=== PATIENT | female | born 1980 | race American Indian/Alaskan Native ===

== ENCOUNTER 2017-08-13 18:46 | Emergency (ER) | payer MEDICAID ==
[2017-08-13 21:45] LABS: Basophils % (Auto) 0.7 % (0.0-1.8); Eosinophils % (Auto) 4.1 % (0.0-4.3); Hematocrit 34.9 % (30.3-42.9); Hemoglobin 10.8 gm/dl (10.1-14.3); Mean Corpuscular HGB Conc 31 % (30-34); Mean Corpuscular Volume 80 fl (79-97); Platelet Count 269 K/mm3 (140-440); Red Blood Count 4.36 M/mm3 (3.65-5.03); Red Cell Distribution Width 18.3 % (13.2-15.2); White Blood Count 4.7 K/mm3 (4.5-11.0)
[2017-08-13 21:47] LABS: Mean Corpuscular Hemoglobin 25 pg (28-32)
[2017-08-13 21:59] LABS: Alanine Aminotransferase 14 units/L (7-56); Albumin 3.8 g/dL (3.9-5); Albumin/Globulin Ratio 1.2 %; Alkaline Phosphatase 69 units/L (35-129); Anion Gap 17 mmol/L; Blood Urea Nitrogen 10 mg/dL (7-17); Calcium 8.7 mg/dL (8.4-10.2); Carbon Dioxide 22 mmol/L (22-30); Glucose 97 mg/dL (65-100); Lipase 18 units/L (13-60); Potassium 3.4 mmol/L (3.6-5.0); Sodium 144 mmol/L (137-145); Total Protein 7.1 g/dL (6.3-8.2)
[2017-08-13 22:36] LABS: Bacteria,Urine 1+ /HPF (Negative); Bilirubin,Urine NEG (Negative); Blood,Urine LG (Negative); Ketones,Urine NEG (Negative); Leukocyte Esterase,Urine NEG (Negative); Mucus,Urine 1+ /HPF; Nitrite,Urine NEG (Negative); WBC,Urine < 1.0 /HPF (0.0-6.0)
[2017-08-14] MEDS ORDERED: LIDOCAINE VISCOUS 2% PO ONE (07:06)
[2017-08-14] MEDS ORDERED: ALUM-MAG HYDROX-SIMETH 200-200-20MG/5ML PO ONE (07:06)
--- NOTE | 2017-08-14 07:13 | Emergency Department Report ---
HPI - General Chief Complaint: Abdominal Pain Time Seen by Provider: 08/14/17 06:44 - HPI HPI: This is a 37-year-old -[place] female presents to the emergency department from home with complaint of a 3 week history of intermittent upper abdominal and/or epigastric burning sensation/discomfort. This is intermittent and appears to worsen with food and sometimes it will cause nausea and/or vomiting. She has not taken anything for her symptoms prior to presentation. Her primary care physician is Dr. Kendall Crowley but she has not seen him regarding her symptoms. She has a past medical history of asthma and hypertension and a psychiatric history of schizophrenia. No recent travel or sick contacts at home. She denies any past surgical history. ED Past Medical Hx - Past Medical History Previous Medical History?: Yes Hx Psychiatric Treatment: Yes (schiophrenia) Hx Asthma: Yes - Surgical History Past Surgical History?: No - Social History Smoking Status: Current Every Day Smoker Substance Use Type: Alcohol - Medications Home Medications: Home Medications Medication Instructions Recorded Confirmed Last Taken Type Cephalexin [Keflex] 500 mg PO Q8HR #21 cap 03/12/16 Unknown Rx traMADol [Ultram] 50 mg PO Q6HR PRN #12 tablet 03/12/16 Unknown Rx Omeprazole Magnesium [PriLOSEC Otc] 20 mg PO QDAY #20 tablet. 08/14/17 Unknown Rx ED Review of Systems ROS: Stated complaint: abdomen pain Other details as noted in HPI Comment: All other systems reviewed and negative Constitutional: denies: chills, fever Eyes: denies: eye pain, eye discharge, vision change ENT: denies: ear pain, throat pain Respiratory: denies: cough, shortness of breath, wheezing Cardiovascular: denies: chest pain, palpitations Gastrointestinal: abdominal pain, nausea, vomiting Genitourinary: denies: urgency, dysuria, discharge Musculoskeletal: denies: back pain, joint swelling, arthralgia Skin: denies: rash, lesions Neurological: denies: headache, weakness, paresthesias Physical Exam - Physical Exam Vital Signs: Vital Signs 08/13/17 08/14/17 08/14/17 20:54 04:14 06:22 Temperature 98.4 F 97.8 F Pulse Rate 94 H 78 68 Respiratory 18 18 17 Rate Blood Pressure 141/101 120/97 Blood Pressure 124/78 [Left] O2 Sat by Pulse 95 100 100 Oximetry Physical Exam: GENERAL: The patient is well-developed well-nourished. HENT: Normocephalic. Atraumatic. Patient has moist mucous membranes. EYES: Extraocular motions are intact. Pupils equal reactive to light bilaterally. NECK: Supple. Trachea is midline. CHEST/LUNGS: Clear to auscultation. There is no respiratory distress noted. HEART/CARDIOVASCULAR: Regular. There is no tachycardia. There is no gallop rub or murmur. ABDOMEN: Abdomen is soft. Mild upper quadrant abdominal tenderness to palpation. No guarding or rebound tenderness. Obese habitus. Patient has normal bowel sounds. There is no abdominal distention. SKIN: Skin is warm and dry. NEURO: The patient is awake, alert, and oriented. The patient is cooperative. The patient has no focal neurologic deficits. The patient has normal speech. MUSCULOSKELETAL: There is no tenderness or deformity. There is no limitation range of motion. There is no evidence of acute injury. ED Course Vital Signs 08/13/17 08/14/17 08/14/17 20:54 04:14 06:22 Temperature 98.4 F 97.8 F Pulse Rate 94 H 78 68 Respiratory 18 18 17 Rate Blood Pressure 141/101 120/97 Blood Pressure 124/78 [Left] O2 Sat by Pulse 95 100 100 Oximetry ED Medical Decision Making - Lab Data Result diagrams: 08/13/17 21:21 08/13/17 21:21 - Radiology Data Radiology results: report reviewed RIGHT UPPER QUADRANT ULTRASOUND: HISTORY: Upper abdominal pain. Technique: Transabdominal ultrasound imaging with Doppler interrogation. FINDINGS: There is trace sludge in the gallbladder. No shadowing gallstones. The gallbladder is normal size, contour and wall thickness. The CBD measures 4.4 mm. Images of the liver parenchyma, pancreas, right kidney and aorta are within normal limits. No perihepatic ascites. IMPRESSION: Trace sludge in the gallbladder. Transcribed By: TTR Dictated By: SRIDEVI RAPHAEL JR, MD Electronically Authenticated By: SRIDEVI RAPHAEL JR, MD Signed Date/Time: 08/14/17 0750 - Medical Decision Making 37-year-old female with 3 week history of upper abdominal pain, nausea and vomiting. There appears to be a component of acid reflux. Labs are unremarkable. There is some blood in the urine but she is in the middle of her menstrual cycle. Vital signs stable including being afebrile. Ultrasound shows gallbladder sludge. 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 She will return to the ER with any worsening of her symptoms or any acute distress. - Differential Diagnosis GERD cholecystitis, cholelithiasis, pancreatitis, gastritis Critical Care Time: No Critical care attestation.: If time is entered above; I have spent that time in minutes in the direct care of this critically ill patient, excluding procedure time. ED Disposition Clinical Impression: Gallbladder sludge Abdominal pain Qualifiers: Abdominal location: upper abdomen, unspecified Qualified Code(s): R10.10 - Upper abdominal pain, unspecified GERD (gastroesophageal reflux disease) Qualifiers: Esophagitis presence: esophagitis presence not specified Qualified Code(s): K21.9 - Gastro-esophageal reflux disease without esophagitis Disposition: TO HOME OR SELFCARE Is pt being admited?: No Condition: Stable Instructions: Biliary Colic (ED), Gastroesophageal Reflux Disease (ED), Abdominal Pain (ED) Additional Instructions: Please follow-up with your primary care physician. I have given you a referral for a local online merchandising manager, Dr. Alvarado, to follow up regarding the gallbladder sludge and acid reflux and your abdominal pain. Return to the emergency Department with any worsening of your symptoms or any acute distress. Please try and stay away from any alcohol, greasy/fatty or spicy food. Prescriptions: Omeprazole Magnesium [PriLOSEC Otc] 20 mg PO QDAY #20 tablet. Referrals: CHITO LAUREN MD [Primary Care Provider] - 3-5 Days OMEGA ALVARADO MD [Staff Physician] - 3-5 Days Time of Disposition: 08:12
--- NOTE | 2017-08-14 07:52 | Ultrasound Report ---
RIGHT UPPER QUADRANT ULTRASOUND: HISTORY: Upper abdominal pain. Technique: Transabdominal ultrasound imaging with Doppler interrogation. FINDINGS: There is trace sludge in the gallbladder. No shadowing gallstones. The gallbladder is normal size, contour and wall thickness. The CBD measures 4.4 mm. Images of the liver parenchyma, pancreas, right kidney and aorta are within normal limits. No perihepatic ascites. IMPRESSION: Trace sludge in the gallbladder.
[2017-08-14 08:40] VITALS: BP 115/87
== END 2017-08-14 08:40 | disposition home or self-care (01) ==
LOC: ED 18:46
DX: K21.9 Gastro-esophageal reflux disease without esophagitis (principal); R10.10 Upper abdominal pain, unspecified; K83.8 Other specified diseases of biliary tract; J45.909 Unspecified asthma, uncomplicated; F20.9 Schizophrenia, unspecified; F17.200 Nicotine dependence, unspecified, uncomplicated; Z91.030 Bee allergy status
CPT/HCPCS: 36415; 76705; 80053; 81001; 81025; 83690; 85025

== ENCOUNTER 2019-07-27 11:49 | Emergency (ER) | payer MEDICAID ==
--- NOTE | 2019-07-27 12:03 | Event Note ---
ED Screening Note Date of service: 07/27/19 Time: 11:59 ED Screening Note: 38 y o f present cc of bilat knee pain x 2 days states she fell about a month ago and has had worsening pain since then states also shooting pain This initial assessment/diagnostic orders/clinical plan/treatment(s) is/are subject to change based on patients health status, clinical progression and re- assessment by fellow clinical providers in the ED. Further treatment and workup at subsequent clinical providers discretion. Patient/guardian urged not to elope from the ED as their condition may be serious if not clinically assessed and managed. Initial orders include: ACC eval
--- NOTE | 2019-07-27 12:27 | Emergency Department Report ---
ED General Adult HPI - General Chief complaint: Extremity Problem,Nontraumatic Stated complaint: RT LEG PAIN Time Seen by Provider: 07/27/19 11:57 Source: patient Mode of arrival: Ambulatory Limitations: No Limitations - History of Present Illness Initial comments: Patient is a 38-year-old female who presents the emergency room with complaints of right knee pain that began a month ago. She states that she had a fall approximately a month ago and has had pain since then. She does have some discomfort with ambulation but is still ambulatory. she denies any numbness or weakness. Patient also presents to the ED with complaints of pain in her left breast that has been there for a while per patient. She denies any nipple discharge, skin changes of the breast, retraction of the nipple. pt has a past medical history of asthma and high blood pressure. she states she took her blood pressure medication this morning. - Related Data Home Medications Medication Instructions Recorded Confirmed Last Taken ALBUTEROL Inhaler (OR & NICU) 2 puff IH QID PRN 02/13/18 04/18/18 Unknown [ProAir HFA Inhaler] Previous Rx's Medication Instructions Recorded Last Taken Type Omeprazole Magnesium [PriLOSEC Otc] 20 mg PO QDAY #20 tablet. 08/14/17 Unknown Rx Aspirin [Adult Low Dose Aspirin EC] 81 mg PO DAILY #30 tablet. 04/20/18 Unknown Rx AtorvaSTATin [Lipitor] 10 mg PO QHS #30 tab 04/20/18 Unknown Rx amLODIPine [Norvasc] 10 mg PO DAILY #30 tab 04/20/18 Unknown Rx Labetalol [Labetalol 200mg TAB] 400 mg PO BID #60 tablet 04/21/18 Unknown Rx Naproxen [Naprosyn TAB] 500 mg PO BID PRN #14 tablet 07/27/19 Unknown Rx Allergies Allergy/AdvReac Type Severity Reaction Status Date / Time smith flavor Allergy Rash Verified 03/12/16 07:01 venom-honey bee Allergy Rash Verified 03/12/16 07:01 [bee venom (honey bee)] ED Review of Systems ROS: Stated complaint: RT LEG PAIN Other details as noted in HPI Comment: All other systems reviewed and negative ED Past Medical Hx - Past Medical History Previous Medical History?: Yes Hx Hypertension: Yes Hx GERD: Yes Hx Headaches / Migraines: Yes Hx Psychiatric Treatment: Yes (schiophrenia) Hx Asthma: Yes Additional medical history: Gallbladder disease TIA - Surgical History Past Surgical History?: No - Social History Smoking Status: Current Every Day Smoker Substance Use Type: None - Medications Home Medications: Home Medications Medication Instructions Recorded Confirmed Last Taken Type Omeprazole Magnesium [PriLOSEC Otc] 20 mg PO QDAY #20 tablet. 08/14/17 04/18/18 Unknown Rx ALBUTEROL Inhaler (OR & NICU) 2 puff IH QID PRN 02/13/18 04/18/18 Unknown History [ProAir HFA Inhaler] Aspirin [Adult Low Dose Aspirin EC] 81 mg PO DAILY #30 tablet. 04/20/18 Unknown Rx AtorvaSTATin [Lipitor] 10 mg PO QHS #30 tab 04/20/18 Unknown Rx amLODIPine [Norvasc] 10 mg PO DAILY #30 tab 04/20/18 Unknown Rx Labetalol [Labetalol 200mg TAB] 400 mg PO BID #60 tablet 04/21/18 Unknown Rx Naproxen [Naprosyn TAB] 500 mg PO BID PRN #14 tablet 07/27/19 Unknown Rx ED Physical Exam - General Limitations: No Limitations General appearance: alert, in no apparent distress - Head Head exam: Present: atraumatic, normocephalic - Eye Eye exam: Present: normal appearance - ENT ENT exam: Present: mucous membranes moist - Extremities Exam Extremities exam: Present: other (TTP to the medial and lateral knee right knee, no obvious edema, FROM of the right knee with some discomfort, no obvious joint laxity, 2+ distal pulses, sensation intact) - Neurological Exam Neurological exam: Present: alert, oriented X3 - Psychiatric Psychiatric exam: Present: normal affect, normal mood - Skin Skin exam: Present: warm, dry, intact, other (no TTP of the left breast, no erythema, no drainage, no induration, no fluctuance, no nipple discharge, no skin dimpling ) ED Course Vital Signs 07/27/19 07/27/19 11:59 12:36 Temperature 98.4 F Pulse Rate 93 H 79 Respiratory 18 20 Rate Blood Pressure 174/92 Blood Pressure 147/93 [Left] O2 Sat by Pulse 99 96 Oximetry ED Medical Decision Making - Medical Decision Making Patient is a 38-year-old female who presents the emergency room with complaints of right knee pain that began a month ago. She states that she had a fall approximately a month ago and has had pain since then. She does have some discomfort with ambulation but is still ambulatory. she denies any numbness or weakness. Patient also presents to the ED with complaints of pain in her left breast that has been there for a while per patient. She denies any nipple discharge, skin changes of the breast, retraction of the nipple. pt has a past medical history of asthma and high blood pressure. she states she took her blood pressure medication this morning. vitals initially with elevated blood pressure, otherwise normal vitals, blood pressure improved on repeat. on exam: TTP to the medial and lateral knee right knee, no obvious edema, FROM of the right knee with some discomfort, no obvious joint laxity, 2+ distal pulses, sensation intact, no TTP of the left breast, no erythema, no drainage, no induration, no fluctuance, no nipple discharge, no skin dimpling, marketing professor: MAXI schneider. pt given prescription for anti-inflammatory. advised to please take medication as prescribed as needed. may use ice, elevation of the leg, rest, and compression. follow up with an orthopedic as needed for knee discomfort. follow up with an [facility] or your primary care doctor to have an outpatient mammogram scheduled due to breast pain. return to the emergency room for any new or worsening symptoms. Critical care attestation.: If time is entered above; I have spent that time in minutes in the direct care of this critically ill patient, excluding procedure time. ED Disposition Clinical Impression: Pain of left breast Right knee pain Qualifiers: Chronicity: acute Qualified Code(s): M25.561 - Pain in right knee Disposition: TO HOME OR SELFCARE Is pt being admited?: No Does the pt Need Aspirin: No Condition: Stable Instructions: Knee Pain (ED), RICE Therapy (ED) Additional Instructions: please take medication as prescribed as needed. may use ice, elevation of the leg, rest, and compression. follow up with an orthopedic as needed for knee discomfort. follow up with an [facility] or your primary care doctor to have an outpatient mammogram scheduled due to breast pain. return to the emergency room for any new or worsening symptoms. Prescriptions: Naproxen [Naprosyn TAB] 500 mg PO BID PRN #14 tablet PRN Reason: pain Referrals: PRIMARY CARE, [Primary Care Provider] - 2-3 Days SAMANTHA ALLISON MD [Staff Physician] - 2-3 Days [facility] [Provider Group] - 2-3 Days Time of Disposition: 12:27 Print Language: MAORI
[2019-07-27 12:37] VITALS: BP 147/93
== END 2019-07-27 12:41 | disposition home or self-care (01) ==
LOC: ED 11:49
DX: M25.561 Pain in right knee (principal); N64.4 Mastodynia; I10 Essential (primary) hypertension; K21.9 Gastro-esophageal reflux disease without esophagitis; G43.909 Migraine, unspecified, not intractable, without status migrainosus; F20.9 Schizophrenia, unspecified; J45.909 Unspecified asthma, uncomplicated; Z98.890 Other specified postprocedural states; F17.200 Nicotine dependence, unspecified, uncomplicated; Z91.018 Allergy to other foods; Z91.030 Bee allergy status

== ENCOUNTER 2019-12-02 18:58 | Emergency (ER) | payer MEDICAID | END 2019-12-02 19:35 | disposition left against medical advice (07) | LOC: ED 18:58 | DX: R11.2 Nausea with vomiting, unspecified (principal); Z53.21 Procedure and treatment not carried out due to patient leaving prior to being seen by health care provider ==